=== PATIENT | male | born 1980 | race Hispanic/Latino ===

== ENCOUNTER 2018-09-04 17:13 | Emergency (ER) | payer SELFPAY ==
[2018-09-04] MEDS ORDERED: Morphine 4 MG/ML VIAL ONE (18:00)
[2018-09-04] MEDS ORDERED: Pantoprazole 40 MG VIAL ONE (18:01)
[2018-09-04] MEDS ORDERED: Ondansetron PF 4 MG/2 ML Vial ONE (18:01)
[2018-09-04 18:43] LABS: #Basophils 0.1 thou/uL (0.0-0.2); #Lymphocytes 1.8 thou/uL (1.20-3.40); #Monocytes 0.3 thou/uL (0.11-0.59); %Basophils 0.4 % (0.0-1.0); %Eosinophils 0.2 % (0.0-10.0); %Lymphocytes 13.7 % (21.0-51.0); %Monocytes 2.4 % (0.0-10.0); %Neutrophils 83.3 % (42.0-75.0); Hemoglobin 15.9 g/dL (14.0-18.0); Mean Corpuscular HGB CONC 34.9 g/dL (32.0-36.0); Mean Corpuscular Hemoglobin 32.6 pg (27.0-31.0); Mean Corpuscular Volume 93.2 fL (78.0-98.0); Mean Platelet Volume 10.8 fL (7.4-10.4); Platelet Count 212 thou/uL (130-400); RBC Distribution Width 12.3 % (11.5-14.5); Red Blood Cell (RBC) Count 4.87 mill/uL (4.70-6.10); White Blood Cell (WBC) Count 13.2 thou/uL (4.8-10.8)
--- NOTE | 2018-09-04 18:45 | RAD ---
AP VIEW CHEST: INDICATIONS: History of stomach ulcers, vomiting, and epigastric pain. COMPARISON: None. FINDINGS: The lungs are clear. The heart size is normal. No acute osseous abnormality is evident. IMPRESSION: No acute cardiopulmonary abnormality. POS: [facility]
--- NOTE | 2018-09-04 18:48 | ULT ---
Sonogram right upper quadrant HISTORY: Right upper quadrant pain. FINDINGS: The gallbladder has a normal appearance without evidence of stones. Common duct is 0.4 cm. Liver unremarkable without focal mass or intrahepatic biliary dilatation. No free fluid. IMPRESSION: Normal right upper quadrant sonogram.
[2018-09-04 19:04] LABS: ALT (SGPT) 30 U/L (8-55); AST (SGOT) 21 U/L (5-34); Albumin 4.9 g/dL (3.5-5.0); Alkaline Phosphatase 103 U/L (40-150); Anion Gap 13 mmol/L (10-20); BUN (Urea Nitrogen) 17 mg/dL (8.9-20.6); Bilirubin, Total 0.5 mg/dL (0.2-1.2); CK (CPK) 268 U/L (30-200); Calc. Creatinine Clearance 0 mL/min (70-130); Calcium 10.1 mg/dL (7.8-10.44); Carbon Dioxide 26 mmol/L (22-29); Chloride 104 mmol/L (98-107); Estimated GFR-MDRD Greater than 90; Globulin 3.4 g/dL (2.4-3.5); Glucose 145 mg/dL (70-105); Lipase 20 U/L (8-78); Potassium 4.1 mmol/L (3.5-5.1); Protein, Total 8.3 g/dL (6.0-8.3); Sodium 139 mmol/L (136-145)
== END 2018-09-04 20:06 | disposition home or self-care (01) ==
LOC: ERS 17:13
DX: K29.70 Gastritis, unspecified, without bleeding (principal); F17.210 Nicotine dependence, cigarettes, uncomplicated; Z79.899 Other long term (current) drug therapy
CPT/HCPCS: 71045; 76705; 80053; 82550; 83690; 83880; 84484; 85025; 93005; 96361; 96374; 96375; C9113; J2270; J2405